=== PATIENT | male | born 2000 | race Hispanic/Latino ===

== ENCOUNTER 2022-11-13 21:10 | Emergency (ER) | payer OTHER ==
[~2022-11-13] VITALS: Ht 170.2 cm; Wt 86.2 kg
[~2022-11-13 21:10] MED LIST: AUGMENTIN 875-1 EACH PO
[2022-11-13 22:28] VITALS: BP 155/100
[2022-11-13] MEDS ORDERED: DEXAMETHASONE SOD PHOS 10 MG/1 ML VIAL IM ONE (22:30)
[2022-11-13] MEDS ORDERED: MEDROL4 M2 PO (22:30)
[2022-11-13] MEDS ORDERED: PROVENTIL HFA6.7 GM INH (22:31)
[2022-11-13] MEDS ORDERED: DEXAMETHASONE SOD PHOS 10 MG/1 ML VIAL ONE (22:46)
== END 2022-11-13 22:36 | disposition home or self-care (01) ==
LOC: ER 21:15
DX: R05.9 Cough, unspecified (principal); J40 Bronchitis, not specified as acute or chronic; J30.2 Other seasonal allergic rhinitis
CPT/HCPCS: 71046; 99283; J1100; U0002

== ENCOUNTER 2023-11-07 16:54 | Observation (INO) | payer OTHER ==
[~2023-11-07] VITALS: Ht 170.2 cm; Wt 86.2 kg
[~2023-11-07 16:54] MED LIST changes: +MEDROL4 M2 PO; +PROVENTIL HFA6.7 GM INH
[2023-11-07] MEDS: SODIUM CHLORIDE 0.9% 1000ML 1,000 ML IV ONE (17:34)
[2023-11-07] MEDS: ONDANSETRON HCL INJ 2MG/ML 2ML 2 MG/ML VIAL IV STA (17:34)
[2023-11-07] MEDS: KETOROLAC TROMETHAMINE 30 MG/ML VIAL IV STA (17:35)
[2023-11-07 17:56] LABS: BASOPHILS % 0.2 % (0.0-1.0); EOSINOPHILS % 0.1 % (0.0-6.0); HEMATOCRIT 48.6 % (38.2-49.6); HEMOGLOBIN 16.4 g/dL (14.0-18.0); LYMPHOCYTES # (AUTO) 0.8 (1.0-3.2); LYMPHOCYTES % 4.2 % (18.0-39.1); MEAN CORPUSCULAR HEMOGLOBIN 28.7 pg (28-32); MEAN CORPUSCULAR HGB CONC 33.7 g/dL (31-35); MONOCYTES # (AUTO) 0.8 (0.2-0.8); NEUTROPHILS # (AUTO) 17.6 (2.1-6.9); NEUTROPHILS % 91.2 % (38.7-80.0); PLATELET COUNT 322 x10e3/uL (140-360); RED BLOOD COUNT 5.72 x10e6/uL (4.3-5.7); RED CELL DISTRIBUTION WIDTH 12.5 % (11.7-14.4); WHITE BLOOD COUNT 19.25 x10e3/uL (4.8-10.8)
[2023-11-07 18:08] LABS: ALBUMIN 4.7 g/dL (3.5-5.0); ALBUMIN/GLOBULIN RATIO 1.1 (0.8-2.0); AMPHETAMINES SCREEN,URINE NEGATIVE (NEGATIVE); ANION GAP 19.8 mmol/L (8-16); BENZODIAZEPINES SCREEN,URINE NEGATIVE (NEGATIVE); BILIRUBIN,TOTAL 0.8 mg/dL (0.2-1.2); CANNABINOIDS SCREEN,URINE NEGATIVE (NEGATIVE); CREATININE, SERUM 0.85 mg/dL (0.72-1.25); METHADONE SCREEN, URINE NEGATIVE (NEGATIVE); OPIATES SCREEN,URINE NEGATIVE (NEGATIVE); PHENCYCLIDINE SCREEN,URINE NEGATIVE (NEGATIVE); POTASSIUM 3.8 mmol/L (3.5-5.1); TOTAL PROTEIN 8.8 g/dL (6.5-8.1)
[2023-11-07 18:16] LABS: CLARITY,URINE CLOUDY (CLEAR); COLOR,URINE YELLOW (YELLOW)
[2023-11-07 18:17] LABS: BILIRUBIN,URINE NEGATIVE (NEGATIVE); GLUCOSE, URINE NEGATIVE (NEGATIVE); KETONES,URINE NEGATIVE (NEGATIVE); LEUKOCYTE ESTERASE ,URINE NEGATIVE (NEGATIVE); NITRITE,URINE NEGATIVE (NEGATIVE); PH,URINE 5.5 (5 - 7); PROTEIN,URINE DIPSTICK 1+ (NEGATIVE); URINE UROBILINOGEN 0.2 mg/dL (0.2 - 1)
[2023-11-07 18:20] LABS: BACTERIA,URINE MANY /HPF; EPITHELIAL CELLS,URINE FEW /LPF; MUCUS,URINE MANY (RARE); WBC,URINE (MAN) 0-5 /HPF (0-5)
[2023-11-07 18:21] LABS: CALCIUM 9.6 mg/dL (8.4-10.2)
[2023-11-07] MEDS ORDERED: IOPAMIDOL 370 MG/ML 100 ML INFUS..BTL INJ ONE (18:31)
[2023-11-07] MEDS: SODIUM CHLORIDE 0.9% IV ONE (18:55)
[2023-11-07] MEDS ORDERED: ONDANSETRON HCL INJ 2MG/ML 2ML 2 MG/ML VIAL IV PRN (20:00)
[2023-11-07] MEDS: Vancomycin IV 1 GM in SODIUM CHLORIDE 0.9% 250ML 250 ML IV SCH (20:01)
[2023-11-07] MEDS: SODIUM CHLORIDE 0.9% 1000ML 1,000 ML IV SCH (20:07)
[2023-11-07 21:13] VITALS: BP 135/68; PULSE 117; RESP 19; TEMP 98.2; O2SAT 96
[2023-11-07] MEDS ORDERED: ACETAMINOPHEN 325 MG TAB PO PRN (21:15)
[2023-11-07] MEDS ORDERED: HYDRALAZINE HCL 20 MG/ML VIAL IV PRN (21:15)
[2023-11-07] MEDS ORDERED: ALBUTEROL 90 MCG/ACT INHALER INH PRN (21:15)
[2023-11-07 23:57] VITALS: BP 130/69; PULSE 115; RESP 19; TEMP 99.1; O2SAT 99
[2023-11-08] VITALS (7 sets, daily range): BP systolic 115–130; BP diastolic 67–83; PULSE 100–115; RESP 18–20; TEMP 98–99.1; O2SAT 96–99
[2023-11-08 06:00] LABS: BASOPHILS % 0.3 % (0.0-1.0); EOSINOPHILS # (AUTO) 0.1 (0.0-0.4); EOSINOPHILS % 1.3 % (0.0-6.0); HEMATOCRIT 39.9 % (38.2-49.6); LYMPHOCYTES # (AUTO) 1.3 (1.0-3.2); LYMPHOCYTES % 16.8 % (18.0-39.1); MEAN CORPUSCULAR HEMOGLOBIN 27.9 pg (28-32); MEAN CORPUSCULAR HGB CONC 31.6 g/dL (31-35); MEAN CORPUSCULAR VOLUME 88.3 fL (81-99); MONOCYTES # (AUTO) 0.8 (0.2-0.8); MONOCYTES % 9.9 % (4.4-11.3); NEUTROPHILS # (AUTO) 5.6 (2.1-6.9); NEUTROPHILS % 71.3 % (38.7-80.0); PLATELET COUNT 234 x10e3/uL (140-360); RED BLOOD COUNT 4.52 x10e6/uL (4.3-5.7); RED CELL DISTRIBUTION WIDTH 12.7 % (11.7-14.4); WHITE BLOOD COUNT 7.84 x10e3/uL (4.8-10.8)
[2023-11-08 06:06] LABS: HEMOGLOBIN 12.6 g/dL (14.0-18.0)
[2023-11-08 06:34] LABS: ALBUMIN 3.5 g/dL (3.5-5.0); ALBUMIN/GLOBULIN RATIO 1.3 (0.8-2.0); ANION GAP 9.4 mmol/L (8-16); BILIRUBIN,TOTAL 0.6 mg/dL (0.2-1.2); CALCIUM 8.3 mg/dL (8.4-10.2); CREATININE, SERUM 0.73 mg/dL (0.72-1.25); TOTAL PROTEIN 6.2 g/dL (6.5-8.1)
[2023-11-08 06:35] LABS: POTASSIUM 3.4 mmol/L (3.5-5.1)
[2023-11-08] MEDS ORDERED: CLARITIN-D 241 EACH PO (12:36)
[2023-11-08] MEDS ORDERED: FLONASE ALLERG9.9 ML INH (12:36)
[2023-11-08] MEDS ORDERED: LORATADINE/PSEUDOEPHEDRINE 24 HR SR TAB PO SCH (12:45)
== END 2023-11-08 15:00 | disposition home or self-care (01) ==
LOC: ER 16:57 → INTOOBSV 19:56 → ERHOLD 19:56 → MED/SURG2 21:10
PROVIDERS: ADMIT Internal Medicine; ATTEND Internal Medicine
DX: R65.10 Systemic inflammatory response syndrome (SIRS) of non-infectious origin without acute organ dysfunction (principal); R19.7 Diarrhea, unspecified; R10.9 Unspecified abdominal pain; J30.2 Other seasonal allergic rhinitis; R00.0 Tachycardia, unspecified; F17.210 Nicotine dependence, cigarettes, uncomplicated; Z11.52 Encounter for screening for COVID-19
CPT/HCPCS: 36415 ×2; 71046; 74177; 76705; 80053 ×2; 80307; 81001; 83605; 83690; 85025 ×2; 87040; 87086; 87400; 87420; 93005; 99284; G0378 ×2; J1885; J2405; J2543 ×2; J3370; J7030 ×2; J7050; Q9967; U0002

== ENCOUNTER 2024-10-06 12:07 | Emergency (ER) | payer OTHER ==
[~2024-10-06] VITALS: Ht 167.6 cm; Wt 89.1 kg
[~2024-10-06 12:07] MED LIST changes: +CLARITIN-D 241 EACH PO; +FLONASE ALLERG9.9 ML INH
[2024-10-06] MEDS ORDERED: DEXAMETHASONE SOD PHOS 10 MG/1 ML VIAL IV ONE (12:30)
[2024-10-06] MEDS ORDERED: TAMIFLU75 MG PO (12:47)
[2024-10-06] MEDS ORDERED: ONDANSETRON ODT4 MG PO (12:48)
[2024-10-06] MEDS: ONDANSETRON HCL INJ 2MG/ML 2ML 2 MG/ML VIAL IV STA (12:57)
[2024-10-06] MEDS: ACETAMINOPHEN 325 MG TAB PO ONE (12:57)
[2024-10-06] MEDS: SODIUM CHLORIDE 0.9% 1000ML 1,000 ML IV SCH (12:58)
[2024-10-06] MEDS: DEXAMETHASONE SOD PHOS INJ 4 MG/ML SDV IV ONE (12:58)
[2024-10-06] MEDS: KETOROLAC TROMETHAMINE 30 MG/ML VIAL IV STA (12:58)
[2024-10-06 13:50] VITALS: PULSE 125; RESP 18; TEMP 99.8; O2SAT 97
== END 2024-10-06 13:56 | disposition home or self-care (01) ==
LOC: FSED 12:14
DX: R50.9 Fever, unspecified (principal); J10.1 Influenza due to other identified influenza virus with other respiratory manifestations; R05.9 Cough, unspecified; R51.9 Headache, unspecified; R00.0 Tachycardia, unspecified; E86.0 Dehydration; R11.0 Nausea; Z11.52 Encounter for screening for COVID-19; R94.31 Abnormal electrocardiogram [ECG] [EKG]
CPT/HCPCS: 0223U; 71046; 83518; 87400; 93005; 96374; 96375; 99284; J1100; J1885; J2405; J7030

== ENCOUNTER 2025-01-14 18:13 | Emergency (ER) | payer OTHER ==
[~2025-01-14] VITALS: Ht 167.6 cm; Wt 85.8 kg
[~2025-01-14 18:13] MED LIST changes: +ONDANSETRON ODT4 MG PO; +TAMIFLU75 MG PO
[2025-01-14 18:38] VITALS: PULSE 115; RESP 18; TEMP 97.8
[2025-01-14] MEDS ORDERED: IBUPROFEN600 MG PO (19:24)
[2025-01-14] MEDS ORDERED: AMOXICILLIN500 MG PO (19:24)
[2025-01-14 19:37] VITALS: BP 155/95; O2SAT 96
[2025-01-14] MEDS: IBUPROFEN 600 MG TAB PO STA (19:37)
== END 2025-01-14 19:40 | disposition home or self-care (01) ==
LOC: FSED 18:28
DX: R05.9 Cough, unspecified (principal); J40 Bronchitis, not specified as acute or chronic; J02.9 Acute pharyngitis, unspecified; Z11.52 Encounter for screening for COVID-19
CPT/HCPCS: 0223U; 83518; 87400; 99284

== ENCOUNTER 2025-04-09 18:21 | Emergency (ER) | payer OTHER ==
[~2025-04-09] VITALS: Ht 167.6 cm; Wt 85.3 kg
[~2025-04-09 18:21] MED LIST changes: +AMOXICILLIN500 MG PO; +IBUPROFEN600 MG PO
[2025-04-09 19:45] VITALS: PULSE 97; RESP 19; TEMP 99.1
[2025-04-09] MEDS: SODIUM CHLORIDE 0.9% 1000ML 1,000 ML IV ONE (20:57)
[2025-04-10 03:08] VITALS: BP 132/84; PULSE 83; RESP 18; TEMP 97.8; O2SAT 99
== END 2025-04-09 23:34 | disposition home or self-care (01) ==
LOC: FSED 19:54
DX: R06.02 Shortness of breath (principal); R42 Dizziness and giddiness
CPT/HCPCS: 99283; J7030